=== PATIENT | female | born 1970 | race Caucasian/White ===

== ENCOUNTER 2018-05-04 11:26 | Day surgery (SDC) | payer SELFPAY ==
[2018-05-04] VITALS (8 sets, daily range): BP systolic 70–105; BP diastolic 51–70; PULSE 92–107; TEMP 99–99.3
[~2018-05-04] VITALS: Ht 157.5 cm; Wt 43.5 kg
[~2018-05-04 11:26] MED LIST: ADVAIR 250/28 DISKU1 IH; ALLEGRA 180MG180 MG PO; ALLEGRA60 MG PO; BIOFLAX1000 MG PO; BUDEPRION XL150 MG PO; CALTRATE 600600 MG PO; CELEBREX 200MG200 MG PO; CLOTRIMAZOLE AN1 CRE TP; DIFLUCAN; ELIDEL CREAM15 GM; ENJUVIA1.25 MG PO; FOSAMAX 70MG TA70 MG PO; GLUCOSAMINE & C1 CA1 PO; IBU800 M1 PO; MACROBID 1100 MG/CAP; METROCREAM CREA45 GM TP; MULTIVITAMIN FO1 CAP PO; NATURE'S BLEND400 IU PO; PERCOCET 325 MG1 TA2 PO; PRIL40 PO; PROVENTIL0.09 MG/A1 IH; RESTASIS0.05% OP; RT ADVAIR 228 DISKUS IH; RYBIX ODT50 MG PO; SINGULAIR 110 MG/TAB PO; SINGULAIR5 MG PO; SUDAFED30 MG PO; VALTREX1 GM PO; XANAX 0.5MG0.5 MG PO; [UNRECOGNIZED DRUG - OTHER]
[2018-05-04] MEDS ORDERED: CALTRATE-600 W600 MG PO (11:55)
[2018-05-04] MEDS ORDERED: DIFLUCAN200 MG PO (11:59)
[2018-05-04] MEDS ORDERED: BRINTELLIX5 PO (12:04)
[2018-05-04] MEDS ORDERED: AMITRIPTYLINE H10 M1 PO (12:05)
[2018-05-04] MEDS ORDERED: LIDODERM 5% PATC1 EA TP (12:06)
[2018-05-04] MEDS ORDERED: PLAQUENIL 200M200 MG PO (12:06)
[2018-05-04] MEDS ORDERED: VITAMIN D32000 IU PO (12:07)
[2018-05-04] MEDS ORDERED: LINZESS72 MCG PO (12:07)
[2018-05-04] MEDS ORDERED: COCONUT OIL 1 ML1 ML (12:08)
[2018-05-04] MEDS ORDERED: COLACE 100100 MG/CAP PO (12:08)
[2018-05-04] MEDS ORDERED: [UNRECOGNIZED DRUG - OTHER] (12:09)
[2018-05-04] MEDS ORDERED: MYCOLOG CREAM 115 GM TP (12:10)
== END 2018-05-04 15:38 | disposition home or self-care (01) ==
LOC: SDCO 11:26
DX: K63.5 Polyp of colon (principal); K57.30 Diverticulosis of large intestine without perforation or abscess without bleeding; K64.0 First degree hemorrhoids; K59.09 Other constipation; Z88.1 Allergy status to other antibiotic agents; Z88.8 Allergy status to other drugs, medicaments and biological substances; Z86.010 Personal history of colon polyps; Z80.0 Family history of malignant neoplasm of digestive organs
CPT/HCPCS: J2250; J2405; J3010; J7030